=== PATIENT | male | born 1970 | race Caucasian/White ===

== ENCOUNTER 2019-03-24 05:18 | Emergency (ER) | payer SELFPAY ==
--- NOTE | 2019-03-24 03:41 | DI.CT_ITS ---
EXAM: CT RENAL COLIC WO CLINICAL HISTORY: right flank pain TECHNIQUE: COMPARISON: No exams were available for comparison FINDINGS: Noncontrast abdominal pelvic CT was performed. Visualized lung bases are clear. Visualized portions of the liver and spleen are unremarkable by noncontrast criteria. Pancreas, gallbladder, and bile d ucts appear normal by noncontrast criteria. Abdominal aorta is of normal diameter. No significant hernia seen. No abdominal or pelvic adenopathy. Appendix is normal. Diverticulosis noted of colon without evidence of diverticulitis. Adrenals appear normal bilaterally. There is a tiny nonobstructing left renal calculus. Tiny nonobs tructing right renal calculi also noted. There is a hyperdense right renal cortical lesion measuring about 6 millimeters in diameter, this may be evaluated ultrasonographically for further assessment. There is mild right hydronephrosis and hydroureter to the level of the ureterovesical junction where there is an intramural obstructing 2 millimeter calculus. No additional ureteral calcification seen . No left hydronephrosis. IMPRESSION: 2 millimeter obstructing intramural ureterovesical junction calculus on the right. Hyperdense 6 millimeter right renal cortical lesion, ultrasound correlation suggested. Bilateral nonobstructing renal calculi noted.
[2019-03-24 05:21] VITALS: PULSE 82; RESP 98; TEMP 36.2; O2SAT 97
--- NOTE | 2019-03-24 05:30 | ED.GENADUL_ITS ---
Discharge Plan Disposition Patient Disposition: HOME Condition: Good Discharge Details Chief Complaint: FlankPain Clinical Impression: Calculus of distal right ureter, Right renal mass Primary Care Provider: None,None ED Provider: Iam Rodrigues Meds and New Rx's Prescriptions: New ibuprofen 600 mg tablet 600 mg PO TID PRN (Reason: pain) Qty: 20 RF: 0 hydrocodone-acetaminophen 5-300 mg tablet 1 tab PO Q6H PRN (Reason: pain) Qty: 10 RF: 0 Discharge Instructions Instructions: Renal Colic (ED) Additional Instructions: CT scan does show a 2 mm right distal kidney stone right at the level of the bladder which should pass on its own in the next day or 2. Please stay hydrated. Take Motrin as prescribed for pain. Use the hydrocodone with acetaminophen for breakthrough pain. Strain your urine. Please follow-up with primary care for the right renal mass that we discussed. Care management will help secure a PCP for you. Return to ED for fever, uncontrolled pain, vomiting, other concerns or problems. Referrals: Care Management [Provider Group] Medical Decision Making Suspect patient has kidney stone. IV established and fluids started. Antiemetic and pain medication ordered. Laboratory studies ordered including TSH due to his complaint of inflamed thyroid. CT scan to be obtained once pain under control. Patient does have a white count of 20,000. He is not febrile. Suspect stress reaction and not infection. Kidney function is normal. Electrolytes are normal. TSH is normal. Urinalysis without sign of infection and very minimal blood. He did get relief initially with some Toradol. He required Dilaudid prior to CAT scan. His CAT scan does show a 2 mm calculus at the UVJ with hydronephrosis. He is also found to have a hyperdense lesion in the right kidney which will need outpatient ultrasound for follow-up. Patient is much more comfortable at this point. I have discussed findings with him. Suspect 2 mm will pass without issue. He will go home with a strainer. He will go home with prescription for ibuprofen to use but as well as [place] if needed for breakthrough pain. State information sheet and informed consent signed. Review of the [facility] site shows no previous prescriptions in the last year. Patient will be referred to care management for primary care follow-up, especially due to the need for ultrasound. Return to ED for fever, uncontrolled pain, vomiting. Medical Records Medical records reviewed: Yes I reviewed the patient's medical records. Lab Data Lab results reviewed: Yes I reviewed the patient's lab results. HPI General Mode of arrival: ambulatory . Date/Time Provider Initiated Documentation: 03/24/19 05:29 . Information obtained by: patient . HPI Narrative: Patient presents to ED with complaint of right flank pain. He woke with urinary urgency. He has had some discomfort in his right groin with associated urinary symptoms for couple of days. He subsequently developed severe right flank pain that he is unable to bear. He has nausea but no vomiting. He denies hematuria. He has not had pain like this previously and has no history of kidney stone. He also reports an inflamed thyroid and some difficulty with swallowing but states that has been a problem on and off. He does not have a primary care physician. He does not take his metoprolol as he is supposed to. Related Data Home Medications Medication Instructions Recorded Confirmed hydrocodone-acetaminophen 1 tab PO Q6H PRN #10 tab 03/24/19 ibuprofen 600 mg PO TID PRN #20 tab 03/24/19 Previous Rx's Medication Instructions Recorded hydrocodone-acetaminophen 1 tab PO Q6H PRN #10 tab 03/24/19 ibuprofen 600 mg PO TID PRN #20 tab 03/24/19 Allergies Allergy/AdvReac Type Severity Reaction Status Date / Time No Known Allergies Allergy Unverified 03/24/19 05:25 General Stated Complaint: FlankPain JHONNY: 3 Review of Systems Narrative: Unable to obtain review of systems due to patient discomfort and moaning. [facility] Medical History (Updated 03/24/19 @ 07:41 by Iam Rodrigues MD) WPW (Bcagl-Yzqkkzrrr-Uhiks syndrome) (Chronic) Surgical History (Updated 03/24/19 @ 05:33 by Iam Rodrigues MD) S/P cardiac cath (Acute) Social History Smoking/Tobacco Use Status: Current every day Tobacco Type: cigarettes Alcohol Intake: never Drug use: Never Do you feel safe in your relationship?: Yes Exam Narrative Exam Narrative: Vitals: Afebrile. Elevated blood pressure. Otherwise normal vitals and room air pulse ox. Const: WDWN in pain, moaning, yelling, writhing around, lying on floor. HEENT: NC/AT. Normal facial exam. Eyes: Normal conjunctiva and sclera. Neck: Supple. Trachea midline. No thyromegaly. Lungs: Normal respiratory effort. Lungs are clear. Cor: RRR without murmur/gallop. Good radial pulses. GI: Soft. NT/ND. No guarding or rebound. : No inguinal hernia. No testicular swelling or tenderness. Back: No CVAT Neuro: A+O x 3. Normal speech, mentation, gait. Cranial nerves II - XII grossly intact. No gross motor or sensory deficit. Ext: No C/C/E. Skin: Warm and dry without rash. Course Vital Signs Vital signs: Vital Signs Temperature 97.1 F L 03/24/19 05:21 Pulse 82 03/24/19 05:21 Respiratory Rate 98 H 03/24/19 05:21 Pulse Oximetry 97 03/24/19 05:21 Temperature 97.1 F L 03/24/19 05:21 Temperature Source Skin 03/24/19 05:21 Pulse 82 03/24/19 05:21 Respiratory Rate 98 H 03/24/19 05:21 Respiratory Effort 03/24/19 05:21 Pulse Oximetry 97 03/24/19 05:21 Oxygen Delivery Method Room Air 03/24/19 05:21 Oxygen Flow Rate 0 03/24/19 05:21 Pain Level 10 03/24/19 05:21
[2019-03-24] MEDS: Ondansetron 4 MG/2 ML VIAL IVP (05:38)
[2019-03-24] MEDS: Ketorolac 30 MG/ML VIAL (05:42)
[2019-03-24] MEDS: MORPHine 10 MG/ML VIAL 2 MG IVP (05:44)
[2019-03-24] MEDS: Lactated Ringers 1,000 ML 1000 ML IV (05:49)
[2019-03-24 05:51] LABS: Abs Immature Grans 0.08 k/cumm (0.0-0.09); Absolute Basophil Count 0.06 k/cumm (0.0-0.2); Absolute Eosinophil Count 0.28 k/cumm (0.0-0.7); Basophils % 0.3; Eosinophils % 1.4; HCT 45.2 % (40.0-50.0); HGB 15.7 g/dL (13.5-17.5); Immature Grans % 0.4 %; Lymphocytes % 38.2; Mean Corp. HGB Concentration 34.7 g/dL (32.0-36.0); Mean Corpuscular Hemoglobin 32.6 pg (27.0-33.0); Mean Platelet Volume 9.5 fL (8.0-11.0); Monocytes % 7.4; Neutrophils % 52.3; Platelet Count 286 x1000/uL (130-400); RBC 4.81 m/cumm (4.50-6.00); RBC Distribution Width 12.9 % (11.8-14.1); White Blood Cell Count 20.33 k/cumm (4.4-10.8)
[2019-03-24] MEDS: Ondansetron 4 MG/2 ML VIAL (05:52)
[2019-03-24 06:03] LABS: Absolute Lymphocyte Count 7.77 k/cumm (1.2-3.4); Absolute Neutrophil Count 10.63 k/cumm (1.2-6.7)
[2019-03-24 06:05] VITALS: BP 143/90; PULSE 88; RESP 20; O2SAT 99
[2019-03-24 06:05] LABS: Diff Comment Diff Reviewed; RBC Morphology Normal
[2019-03-24 06:09] LABS: Anion Gap 11.8 mmol/L (3-11); BUN 16 mg/dL (7-18); CO2 26.2 mmol/L (21.0-32.0); CREATININE 1.05 mg/dL (0.70-1.30); Calcium 8.5 mg/dL (8.5-10.1); Chloride 107 mmol/L (98-107); Glucose 126 mg/dL (74-106); Potassium 3.7 mmol/L (3.5-5.1); Sodium 145 mmol/L (136-145); TSH (W/Ref FT4) 3.67 uIU/mL (0.36-3.74)
[2019-03-24 06:09] LABS: Bilirubin Negative (Negative); Blood Trace-intact (Negative); Clarity Clear (Clear); Glucose Negative (Negative); Ketones Negative (Negative); Leukocyte Esterase Negative (Negative); Nitrite Negative (Negative); Specific Gravity >= 1.030 (1.005-1.025); Urobilinogen 0.2 EU/dL (Up TO 0.2); pH 5.5 (5-8)
[2019-03-24 06:20] LABS: Bacteria Rare HPF (Negative); RBC 0-2 HPF (0-2)
[2019-03-24 06:21] LABS: C & S Indicated? No; Mucus Trace (Negative)
[2019-03-24] MEDS: HYDROmorphone 2 MG/ML VIAL 1 MG IVP (06:21)
--- NOTE | 2019-03-24 06:24 | NUR.NOTE ---
Nursing Note: 0615: Pt moaning loudly. States pain is 10/10. Orders given
--- NOTE | 2019-03-24 07:10 | DI.VRAD_ITS ---
PROCEDURE INFORMATION: Exam: CT Abdomen And Pelvis Without Contrast Exam date and time: 03/24/2019 6:33 AM Age: 49 years old Clinical indication: Abdominal pain; Flank; Right TECHNIQUE: Imaging protocol: Computed tomography of the abdomen and pelvis without contrast. Radiation optimization: All CT scans at this facility use at least one of these dose optimization techniques: automated exposure control; mA and/or kV adjustment per patient size (includes targeted exams where dose is matched to clinical indication); or iterative reconstruction. COMPARISON: No relevant prior studies available. FINDINGS: Limitations: No contrast was administered, limiting evaluation for some pathologies. Liver: No focal hepatic lesion identified, within the limitations of a noncontrast examination. Gallbladder and bile ducts: No radiodense gallbladder calculi seen. Pancreas: No CT evidence for acute pancreatitis. Spleen: No splenomegaly. Adrenals: No mass. Kidneys and ureters: Small nonobstructing left renal calculus. No left hydronephrosis. Hyperdense lesion in the right kidney, could represent hyperdense cyst or solid lesion. Consider nonemergent followup. Small right renal calculus. There is right hydroureteronephrosis. There is a 2 mm calculus in the bladder at the level of the right ureterovesical junction. Stomach and bowel: No intestinal obstruction is evident. Colonic diverticula are identified but there is no CT evidence for diverticulitis. Appendix: No evidence of appendicitis. Intraperitoneal space: No free air. Vasculature: Arterial calcifications. No abdominal aortic aneurysm identified. Bladder: See Kidneys And Ureters Finding. Reproductive: No acute findings. IMPRESSION: Obstructing right ureterovesical junction calculus. Dictated and Authenticated by: Sarah Sharma MD. Ordering:CHARLEY Vitale MD
[2019-03-24 07:17] VITALS: BP 142/88; PULSE 94; RESP 18; TEMP 37; O2SAT 95
[2019-03-24 08:11] VITALS: BP 142/88; PULSE 94; RESP 18; TEMP 37; O2SAT 95
== END 2019-03-24 08:13 | disposition home or self-care (01) ==
PROVIDERS: Emergency Provider Emergency Medicine
DX: N13.2 Hydronephrosis with renal and ureteral calculous obstruction (principal); R93.421 Abnormal radiologic findings on diagnostic imaging of right kidney
CPT/HCPCS: 36415; 80048; 96374; 96375; 99284; 74176; 81003; 81015; 84443; 85025; 99285; J1885; J2405

== ENCOUNTER 2020-05-07 01:13 | Outpatient (CLI) | payer OTHER, SELFPAY ==
--- NOTE | 2020-05-07 | DI.US_ITS ---
EXAM: US SCROTUM CLINICAL HISTORY: [id number],RT TESTICULAR/GROIN PINCHING AND PAIN, TECHNIQUE: Ultrasound of the testes performed using grayscale, color, and Doppler imaging. COMPARISON: US US RENAL from 05/07/2020 FINDINGS: RIGHT HEMISCROTUM: The right testicle exhibits normal size and echo architecture with no evidence of intratesticular mas s. Vascular flow was demonstrated within the right testicle, including arterial waveforms. There is a epididymal head cyst which measures 9 x 8 x14 millimeters. Also another slightly smaller adjacent area in the right epididymal head measuring 5 by 3 millimeters, possibly significant. There is no ipsilateral hydrocele nor varicocele. LEFT HEMISCROTUM: The left testicle exhibits normal size and echo architecture with no evidence of intratesticular mass . Vascular flow is demonstrated within the left testicle, including arterial waveforms. The epididymis appears unremarkable. There are no epididymal head cysts. There is no ipsilateral hydrocele or varicocele. IMPRESSION: 1. No evidence of significant testicular mass nor testicular torsion. 2. No hydroceles evident. 3. 9 x 8 x 14 millimeter right sided epididymal head cysts. Also in the same right epididymal head i s a smaller 5 x 3 millimeter density which is possibly a hemorrhagic cyst but will require follow-up in few weeks time. 4. Incidentally noted are multiple small lymph nodes in the right groin. DATA REPOSITORY:
--- NOTE | 2020-05-07 | DI.RAD_ITS ---
EXAM: XR SHOULDER LT COMPLETE 2+V CLINICAL HISTORY: [id number],LT SHOULDER PAIN, M25.512. TECHNIQUE: 2D digital imaging was performed. COMPARISON: No exams were available for comparison FINDINGS: There is no evidence of fracture or dislocation. No soft tissue calcifications. Subacromial space a ppears unremarkable. Note degenerative changes in the glenohumeral and AC joints. No osseous lesion s IMPRESSION: No significant radiographic findings DATA REPOSITORY: RADIATION DOSE DELIVERED:
--- NOTE | 2020-05-07 | DI.US_ITS ---
EXAM: US RENAL CLINICAL HISTORY: [id number],F/U ABNL CT,RENAL CALCULUS AND LESION,N28.9 TECHNIQUE: Ultrasound of both kidneys performed using standard protocol. COMPARISON: No exams were available for comparison FINDINGS: RIGHT KIDNEY: Measures 10.7 cm in length. No cysts evident. Normal cortical thickness and corticomedullary differen tiation .No solid masses No intrarenal calculi nor hydronephrosis. LEFT KIDNEY: Measures 11.5 cm in length. No cysts evident. Normal cortical thickness and corticomedullary differe ntiaion. No solids masses. No intrarenal calculi nor hydonephrosis. URINARY BLADDER: Prevoid volume is 113 cc Postvoid volume is 113 cc Patient was not able to void. No evidence of bladder mass nor diverticuli. Ureterovesical jets: Both identified and appear symmetrical IMPRESSION: 1. No significant ultrasound findings in the kidneys. 2. Patient was apparently unable to void therefore both the pre and postvoid volumes are 113 cc. Prostate gland was not able to be seen. DATA REPOSITORY:
== END 2020-05-07 01:33 ==
PROVIDERS: Visit Provider Nurse Practitioner Family
DX: M25.512 Pain in left shoulder (principal); N50.3 Cyst of epididymis; N28.89 Other specified disorders of kidney and ureter
CPT/HCPCS: 76770; 73030; 76870

== ENCOUNTER 2024-12-19 17:48 | Emergency (ER) | payer OTHER, SELFPAY ==
[2024-12-19] VITALS (28 sets, daily range): BP systolic 129–152; BP diastolic 67–94; PULSE 37–103; RESP 9–21; TEMP 36.9; O2SAT 82–99
--- NOTE | 2024-12-19 17:45 | RT.EKG_ITS ---
APPROVED REPORT Exam: Resting ECG Reason for Exam: SOB Patient Location: E HR:80 bpm ECG Measurements Heart Rate 80 AXIS NV 132 P 68 QRSd 92 QRS 65 QT 361 T 22 QTc 416 Conclusion Sinus rhythm, rate 80 No interval abnormalities No STEMI No priors available for comparison
[2024-12-19 19:11] LABS: Abs Immature Grans 0.06 10^3/uL (0.0-0.06); BE (Venous) 1 mmol/L (-2-3); HCO3 (Venous) 25 mmol/L (23-28); HCT 41.3 % (40.0-50.0); HGB 14.5 g/dL (13.5-17.5); Immature Grans % 0.4 %; MCH 32.6 pg (27.0-33.0); MCHC 35.1 % (32.0-36.0); MCV 93 fL (80-95); MPV 8.9 fL (8.0-11.0); O2 Sat (Venous) 98 %; Platelet Count 281 10^3/uL (130-400); RBC 4.45 10^6/uL (4.36-5.78); RDW 12.9 % (11.8-14.1); RDW-SD 43.8 fL; TCO2 (Venous) 22 mmol/L (24-29); WBC 13.79 10^3/uL (4.4-10.8); pCO2 (Venous) 37 mmHg (41-51); pO2 (Venous) 82 mmHg
[2024-12-19] MEDS: methylPREDNISolone SUCC 125 MG VIAL IVP (19:30)
[2024-12-19] MEDS: Albuterol/Ipratropium 3 ML UPD VIAL UPD (19:30)
--- NOTE | 2024-12-19 19:34 | ED.GENADUL_ITS ---
Discharge Plan Disposition Patient Disposition: Home Condition: Stable Discharge Details Clinical Impression: RAD (reactive airway disease), Upper respiratory infection, viral Primary Care Provider: None,None ED Provider: Jaki Hutchinson Home Meds and New Rx's Prescriptions: New prednisone 20 mg tablet 40 mg PO DAILY 4 Days Qty: 8 0RF Rx Instructions: Start 12/20/2024 azithromycin 250 mg tablet 250 mg PO DAILY 4 Days Qty: 4 0RF Rx Instructions: start on day 2 of therapy (12/20/2024) No Action diclofenac sodium [Arthritis Pain (diclofenac)] 1 % gel 2 g topical QID Rx Instructions: apply to single elbow, wrist or hand; for hand includes palm/fingers/back of hand sildenafil 25 mg tablet 25 mg PO DAILY PRN Rx Instructions: administer 30 minutes to 4 hours before activity ibuprofen 600 mg tablet 600 mg PO TID PRN (Reason: pain) Qty: 20 0RF Discharge Instructions Instructions: Upper Respiratory Infection ED Additional Instructions: You were seen in the emergency department today for evaluation of cough, sputum production, and shortness of breath. In our department a full physical examination performed, and had laboratory studies that showed a slight elevation in your white blood cell count, consistent with our concern for infection. Your COVID and influenza test was negative. You did have some wheezing that is concerning for reactive airway disease, this could be due to your occupational exposures. You received a breathing treatment and your first dose of steroids and antibiotics. Your x-ray does not show any evidence of pneumonia, you likely have a viral upper respiratory infection or bronchitis. I sent a prescription for the remainder of your antibiotic and steroid course, please take both of these medications until they are gone, even if you start to feel better. You received an albuterol inhaler which you can use every 4 hours as needed to manage shortness of breath and wheezing [facility] as you should be connected with a primary care provider to manage your health long-term. Thank you for allowing us to be part of your care. HPI General Mode of arrival: ambulatory . Date/Time Provider Initiated Documentation: 12/19/24 17:49 . Limitations to Documentation: no limitations . Information obtained by: patient and old records reviewed . HPI Narrative: This is a 54-year-old male patient with a history of Noyyf-Lbgpbhooq-Aylbn syndrome, presenting for evaluation of shortness of breath and cough. The patient reports no history of pulmonary abnormalities, but does have a history of occupational exposure to respiratory irritants. He states that he has noticed that he has had a cough and feels like there is mucus in his chest that is difficult for him to cough up. When he does manage to cough things up it is white, no hemoptysis. He denies chest pain, palpitations, has been maintaining his hydration. No fevers at home, but he has had a headache. States that his had some leftover amoxicillin that he took 2 doses of in case he had pneumonia. Related Data Home Medications ?Medication ?Instructions ?Recorded ?Confirmed ibuprofen 600 mg tablet 600 mg PO TID PRN pain #20 t abs 03/24/19 12/19/24 diclofenac sodium 1 % topical gel 2 g topical QID 05/1312/19/24 (Arthritis Pain (diclofenac)) sildenafil 25 mg tablet 25 mg PO DAILY PRN 06/25/20 12/19/24 azithromycin 250 mg tablet 250 mg PO DAILY 4 days #4 t abs 12/19/24 prednisone 20 mg tablet 40 mg (2 x 20 mg) PO DAILY 4 days 12/19/24 #8 tabs Previous Rx's ?Medication ?Instructions ?Recorded ibuprofen 600 mg tablet 600 mg PO TID PRN pain #20 t abs 03/24/19 azithromycin 250 mg tablet 250 mg PO DAILY 4 days #4 t abs 12/19/24 prednisone 20 mg tablet 40 mg (2 x 20 mg) PO DAILY 4 days 12/19/24 #8 tabs Allergies Allergy/AdvReac Type Severity Reaction Status Date / Time No Known Allergies Allergy Unverified 12/19/24 17:57 General Stated Complaint: RespSymp JHONNY: 3 Exam Narrative Exam Narrative: Gen: Awake and alert, in no apparent distress HEENT: Non-icteric sclera Neck: Supple Lungs: Tripod position, appears quite short of breath with tachypnea, diffuse ex piratory wheezing and frequent hacking cough appreciated CV: Appears well perfused, heart with regular rate and rhythm, strong distal pulses Abdomen: Non-distended MSK: Moves 4 extremities without apparent limitation in ROM. No peripheral edema, no unilateral calf swelling or tenderness. Skin: Visualized skin without rashes, cyanosis. Neuro: Normal Gait, no obvious focal deficits or facial asymmetry. Speaks in full, clear sentences. Psych: Appropriate for situation. Course Vital Signs Vital signs: Vital Signs Temperature 36.9 C 12/19/24 17:55 Pulse 103 H 12/19/24 17:55 Respiratory Rate 16 12/19/24 17:55 Blood Pressure 135/89 12/19/24 17:55 Pulse Oximetry 94 12/19/24 17:55 Temperature 36.9 C 12/19/24 17:57 Pulse 78 12/19/24 19:30 Pulse 78 12/19/24 19:10 Respiratory Rate 19 12/19/24 19:30 Blood Pressure 144/91 H 12/19/24 19:01 Blood Pressure Mean 110 12/19/24 19:01 Pulse Oximetry 97 12/19/24 19:30 Oxygen Delivery Method Room Air 12/19/24 19:30 Oxygen Flow Rate 0 12/19/24 19:30 Pain Level 4 12/19/24 17:57 Lab/Test Results Lab/Test Results: Laboratory Tests Range/Units 12/19/24 19:03 WBC (4.4-10.8) 10^3/uL 13.79 H RBC (4.36-5.78) 10^6/uL 4.45 Hgb (13.5-17.5) g/dL 14.5 Hct (40.0-50.0) % 41.3 MCV (80-95) fL 93 MCH (27.0-33.0) pg 32.6 MCHC (32.0-36.0) % 35.1 RDW (11.8-14.1) % 12.9 Plt Count (130-400) 10^3/uL 281 MPV (8.0-11.0) fL 8.9 Immature Gran % % 0.4 Neutrophils % % 72.1 Lymphocytes % % 15.2 Monocytes % % 8.8 Eosinophils % % 3.1 Basophils % % 0.4 Nucleated RBC % (0.0-0.3) % 0.0 Absolute Neutrophils (1.2-6.7) 10^3/uL 9.94 H Absolute Lymphocytes (1.2-3.4) 10^3/uL 2.10 Absolute Monocytes (0.1-0.8) 10^3/uL 1.21 H Absolute Eosinophils (0.0-0.7) 10^3/uL 0.43 Absolute Basophils (0.0-0.2) 10^3/uL 0.06 VBG pH (7.31-7.41) 7.44 H VBG pCO2 (41-51) mmHg 37 L VBG pO2 mmHg 82 VBG HCO3 (23-28) mmol/L 25 VBG Total CO2 (24-29) mmol/L 22 L VBG O2 Saturation % 98 VBG Base Excess (-2-3) mmol/L 1 Medical Decision Making This is a 54-year-old male patient presenting for evaluation of shortness of breath and cough. Differential includes but is not limited to infectious pathologies including viral URI, pneumonia, bronchitis. The wheezing is certainly concerning for reactive airway disease exacerbation, the patient has no formal diagnosis of asthma, COPD, occupational pneumoconiosis, but this was considered. The patient has no evidence of fluid overload on physical examination nor history of heart failure to suggest pulmonary edema or pleural effusion. The patient has no DVT symptoms, hypoxia, or thromboembolic history to significantly increase my concern for pulmonary embolism, and his clinical evaluation is far more compelling for reactive airway and infectious pathology. No chest pain to suggest ACS. We will obtain labs to include CBC, CMP, magnesium, troponin, Fluvid, and VBG. I will obtain a chest x-ray, and EKG. I will provide the patient with a duo nebulizer treatment and a dose of methylprednisolone. -EKG shows a normal sinus rhythm without evidence of ischemia, interval abnormality, or ectopy. I independently interpreted the laboratory studies, which show a mild leukocytosis to 13.7, but no anemia, or thrombocytopenia. The chemistry panel is without evidence of electrolyte abnormality, kidney dysfunction, or liver injury. BNP and troponin are low, and there is no interval increase in the 1 hour delta recheck of the troponin to suggest active ischemia. VBG without evidence of acidosis or hypercarbia. Fluvid negative. Chest x-ray reviewed by myself and shows no focal consolidation to suggest pneumonia. I am most concerned for viral URI/bronchitis. I will provide the patient with a dose of azithromycin and the remainder of a course of azithromycin and prednisone burst. The patient was provided with an albuterol inhaler. At this time, the patient has had a full medical evaluation and is safe for discharge to home. They are hemodynamically stable, ambulatory, and tolerating PO. They are understanding of the follow-up plan and return precautions. They left our facility without incident. Jaki Hutchinson MD PFSH All Active Problems (Updated 12/19/24 @ 21:23 by Jaki Hutchinson MD) Upper respiratory infection, viral (Acute) RAD (reactive airway disease) (Acute) Erectile dysfunction (Acute) Epididymal cyst (Acute) Pelvic pain (Acute) Calculus of distal right ureter (Acute) Right renal mass (Acute) WPW (Vxhio-Ewlltiols-Cntor syndrome) (Chronic) Medical History (Updated 12/19/24 @ 21:23 by Jaki Hutchinson MD) Pre-excitation syndrome Surgical History S/P cardiac cath Social History Smoking/Tobacco Use Status: Current every day Tobacco Type: cigarettes Smoking risk assessment performed?: Yes Alcohol Intake: never Drug use: Never Substance use type: does not use Do you feel safe in your relationship?: Yes
[2024-12-19 19:36] LABS: ALT 18 U/L (16-63); AST 15 U/L (15-37); Albumin 3.7 g/dL (3.4-5.0); Alkaline Phosphatase 89 U/L (46-116); Anion Gap 10.5 mmol/L (3-11); BUN 13 mg/dL (7-18); Bilirubin, Total 0.2 mg/dL (0.2-1.0); CO2 25.5 mmol/L (21.0-32.0); Calcium 8.6 mg/dL (8.5-10.1); Chloride 104 mmol/L (98-107); Estimated GFR 108.82 (mL/min/1.73m2); Glucose 102 mg/dL (74-106); Magnesium 2.3 mg/dL (1.8-2.4); NT-proBNP 12 pg/mL (<300); Potassium 3.9 mmol/L (3.5-5.1); Sodium 140 mmol/L (136-145); Total Protein 7.1 g/dL (6.4-8.2); Troponin I 6 ng/L (<or=76)
--- NOTE | 2024-12-19 20:00 | DI.RAD_ITS ---
Exam(s) XR CHEST 2V PA LATERAL EXAM: XR CHEST 2V PA LATERAL CLINICAL HISTORY: cough. TECHNIQUE: 2D digital imaging was performed. COMPARISON: CR CHEST 2 VIEWS PA,LAT from 02/21/2016 FINDINGS: 2 views: Heart size is normal. The mediastinum is not widened. There is bilateral hyperinflation but no confluent infiltrates nor pleural effusions. No pulmonary edema. IMPRESSION: No acute pulmonary findings. DATA REPOSITORY: RADIATION DOSE DELIVERED:
--- NOTE | 2024-12-19 20:29 | DI.VRAD_ITS ---
PROCEDURE INFORMATION: Exam: XR Chest Exam date and time: 12/19/2024 8:19 PM Age: 54 years old Clinical indication: Cough and shortness of breath; Cough, SOB TECHNIQUE: Imaging protocol: Radiologic exam of the chest. Views: 2 views. COMPARISON: CR XR SHOULDER LT COMPLETE 2+V 05/07/2020 11:04 AM FINDINGS: Lungs: The lungs are clear. No consolidative radiopacities. Pleural spaces: No pleural effusion. No pneumothorax. Heart/Mediastinum: The heart is normal size. Bones/joints: Unremarkable. IMPRESSION: No acute cardiopulmonary findings. Dictated and Authenticated by: Nancy Cochran MD. Orderin [facility]. Macario Pollack MD
[2024-12-19 20:52] LABS: Troponin I 7 ng/L (<or=76)
[2024-12-19] MEDS: Azithromycin 250 MG TAB 500 MG PO (21:15)
[2024-12-19] MEDS: Albuterol HFA 8 GM 60 PUFF INH IH (21:15)
[2024-12-19 21:18] LABS: COVID-19 PCR Negative (Negative); RSV PCR Negative (Negative)
== END 2024-12-19 21:55 | disposition home or self-care (01) ==
PROVIDERS: Emergency Provider Emergency Medicine
DX: J45.909 Unspecified asthma, uncomplicated (principal); J06.9 Acute upper respiratory infection, unspecified; B97.89 Other viral agents as the cause of diseases classified elsewhere; F17.210 Nicotine dependence, cigarettes, uncomplicated
CPT/HCPCS: 80053; 82805; 87637; 93005; 94640; 96374; 99284; 71046; 83735; 83880; 84484; 85025; 93010; J2919; J7620